=== PATIENT | male | born 1980 | race Caucasian/White ===

== ENCOUNTER 2016-06-05 21:01 | Emergency (ER) | payer OTHER ==
[2016-06-05] MEDS ORDERED: ALBUTEROL/IPRATROPIUM 2.5/0.5 MG 3 ML/EACH DOSE ONE ×2 (23:24→23:51)
== END 2016-06-06 00:25 | disposition home or self-care (01) ==
LOC: ED 21:01
DX: J06.9 Acute upper respiratory infection, unspecified (principal); R10.9 Unspecified abdominal pain; R19.7 Diarrhea, unspecified; R06.2 Wheezing; F17.210 Nicotine dependence, cigarettes, uncomplicated